=== PATIENT | male | born 1940 | race Caucasian/White ===

== ENCOUNTER 2019-09-14 18:33 | Emergency (ER) | payer MEDICARE, BC, SELFPAY ==
[2019-09-14 18:51] VITALS: BP 136/88; PULSE 67; RESP 16; TEMP 36.1; O2SAT 100; BMI 22.9
--- NOTE | 2019-09-14 21:40 | XR_ITS ---
WS: [id number] Portable AP upright chest, 09/14/2019 Clinical Data: admission Comparison: Portable chest, 12/21/2018. Findings: No nodules, masses or effusions are seen. The heart is normal. The pulmonary vascularity is not increased. No pneumonia or pneumothorax is seen. The aortic arch and descending aorta show calci fication and tortuosity. XR/XR chest 1V portable [id number] Impression: Atherosclerosis.
--- NOTE | 2019-09-14 23:18 | ED_ITS ---
Entered by Amisha Duggan, acting as scribe for Natali Shukla MD Sep 14, 2019 18:33 HPI - General Adult General: Chief complaint: General Medical Stated complaint: lethargic, low o2 Time Seen by Provider: 09/14/19 23:19 History of Present Illness: Associated symptoms: Deny dyspnea, headache(s) or vomiting Review of Systems Resp: Denies: shortness of breath GI: Denies: abdominal pain, vomiting or diarrhea Neuro: Denies: headache PFSH ED PFSH: Statuses (acute, chronic, etc) shown below reflect problem list status as previously entered and may not be historically accurate Social History Smoking and tobacco status: never smoked Physical Exam Const: COMMON NORMALS: no apparent distress and healthy appearing HENMT: COMMON NORMALS: normocephalic and external nose normal HEAD & SCALP: normocephalic NOSE: external nose normal and no nasal discharge (nasal dischage) Eye: COMMON NORMALS: PERRL PUPIL: Yes PERRL Neck/C-Spine: COMMON NORMALS: full ROM and no lymphadenopathy Chest: COMMONS NORMALS: inspection of chest normal Resp: COMMON NORMALS: normal respiratory effort and clear to auscultation bilaterally AUSCULTATION: clear to auscultation bilaterally Cardio: COMMON NORMALS: regular rate and regular rhythm RATE: regular rate RHYTHM: regular rhythm GI: COMMON NORMALS: soft to palpation PALPATION: Yes soft Extremity: COMMON NORMALS: normal to inspection, full ROM and normal capillary refill Psych: COMMON NORMALS: mental status grossly normal and cooperative Skin: COMMON NORMALS: no rashes or lesions noted GENERAL SKIN EXAM: no rashes or lesions noted Course Vital Signs: Vital signs: Vital Signs Temperature 97 F L 09/14/19 18:51 Pulse Rate 67 09/14/19 18:51 Respiratory Rate 16 09/14/19 18:51 Blood Pressure 136/88 09/14/19 18:51 Pulse Oximetry 100 09/14/19 18:51 Coding Level of Care Code ED Medicaid Biller for Nellie [place]
--- NOTE | 2019-09-14 23:26 | ECG_ITS ---
Measurements Intervals [place] Rate: 61 P: 52 IA: 244 QRS: 38 QRSD: 118 T: 68 QT: 409 QTc: 414 SINUS RHYTHM WITH FIRST DEGREE AV BLOCK MODERATE INTRAVENTRICULAR CONDUCTION DELAY [110+ ms QRS DURATION] Compared to ECG 02/08/2018 18:19:01 First degree AV block now present Intraventricular conduction delay now present Electronically Signed On 09-15-2019 13:29:26 COLLABORATING SUPERVISING PHYSICIAN by Sirena Ribeiro M.D. [id number]
--- NOTE | 2019-09-14 23:29 | ED_ITS ---
HPI - General Adult General: Chief complaint: General Medical Stated complaint: lethargic, low o2 Time Seen by Provider: 09/14/19 23:19 History of Present Illness: HPI narrative: states patient has been sleeping more the last few days. Notes his oxygen level on her home O2 sat was 76% but patient was not short of breath. Did get up in the 90s. Patient's called daughter and they checked it it was down 80s went to [facility] urgent care and It was up in the 90s and got down about 89. Patient has been in waiting room for a while and had no episodes of shortness of breath. 's concern is possible pneumonia. MD complaint: low sats Onset (ago): hour(s) Associated symptoms: Deny chest pain, dyspnea, headache(s), nausea, rash or vomiting Review of Systems Narrative: Low O2 sats Const: Denies: fever, chills or body aches Eyes: Denies: change in vision or blurry vision ENMT: Denies: throat pain or nasal congestion Card: Denies: chest pain or shortness of breath on exertion Resp: Reports: non-productive cough (Very minimal); Denies: shortness of breath or productive cough GI: Denies: abdominal pain, nausea or vomiting : Denies: difficulty urinating Musc: Denies: extremity pain Skin/Breast: Denies: rash Neuro: Denies: headache Psych: Denies: anxiety or depression Peter/Lymph: Denies: easy bruising PFSH ED PFSH: Statuses (acute, chronic, etc) shown below reflect problem list status as previously entered and may not be historically accurate Social History Smoking and tobacco status: never smoked Physical Exam Const: COMMON NORMALS: no apparent distress and average body habitus HENMT: COMMON NORMALS: normocephalic HEAD & SCALP: normal to inspection and normocephalic FACE & SINUS: normal facial exam Eye: COMMON NORMALS: conjunctivae normal GENERAL EYE: normal appearance of both eyes CONJUNCTIVA: Yes conjunctivae normal Neck/C-Spine: COMMON NORMALS: no JVD Chest: COMMONS NORMALS: inspection of chest normal Resp: COMMON NORMALS: normal respiratory effort and clear to auscultation bilaterally AUSCULTATION: clear to auscultation bilaterally Cardio: COMMON NORMALS: no JVD, regular rate and regular rhythm RATE: regular rate RHYTHM: regular rhythm GI: COMMON NORMALS: normal to inspection, nondistended, normoactive bowel sounds Extremity: COMMON NORMALS: normal to inspection and full ROM Neuro: OTHER: Patient history of strokes x2 does not really communicate verbally and if he does he has very little to say Course Vital Signs: Vital signs: Vital Signs Temperature 97 F L 09/14/19 18:51 Pulse Rate 67 09/14/19 18:51 Respiratory Rate 16 09/14/19 18:51 Blood Pressure 136/88 09/14/19 18:51 Pulse Oximetry 100 09/14/19 18:51 [facility] - General Adult Lab Data: Labs: Lab Results 09/14/19 09/14/19 Range/Units 00:08 00:08 WBC 6.0 (4.0-10.0) 10^3/ uL RBC 4.37 (4.1-5.3) 10^6/u L Hgb 13.0 (11.7-16.6) g/dL Hct 39.8 L (42.0-52.0) % MCV 91.1 (80-94) fL MCH 29.7 (28.0-34.0) pg MCHC 32.7 (30.0-36.0) g/dL RDW 12.9 (12.1-15.1) % Plt Count 185 (130-400) 10^3/c mm MPV 10.3 (7.4-10.4) fL Neut % (Auto) 56.7 % Lymph % (Auto) 33.3 % Vernon % (Auto) 6.2 % Eos % (Auto) 2.7 % Baso % (Auto) 0.8 % Neut # (Auto) 3.4 (1.8-7.7) 10^3/u L Lymph # (Auto) 2.0 (0.8-4.8) 10^3/u L Vernon # (Auto) 0.4 (0.2-0.9) 10^3/u L Eos # (Auto) 0.2 (0.0-0.8) 10^3/u L Baso # (Auto) 0.1 (0.0-0.1) 10^3/u L Nucleated RBC % (a uto) 0 % Nucleated RBCs # 0.0 /100WBC Sodium 142 (136-145) mmol/L Potassium 4.4 (3.5-5.1) mmol/L Chloride 104 (98-107) mmol/L Carbon Dioxide 28 (22-29) mmol/L Anion Gap 14.4 (5-19) BUN 25 H (8-23) mg/dL Creatinine 1.4 H (0.7-1.2) mg/dL Glucose 113 H (74-106) mg/dL Calcium 10.3 H (8.8-10.2) mg/Dl Total Bilirubin 0.2 (0.15-1.2) mg/dL AST 13 (0-40) U/L ALT 15 (0-41) U/L Alkaline Phosphata se 53 (40-130) IU/L Total Protein 7.3 (6.6-8.7) g/dL Albumin 4.3 (3.5-5.2) g/dL Globulin 3.0 (1.3-4.6) g/dL Imaging Data^: CXR: My impression: No infiltrates EKG Data^: EKG 1: EKG interpretation date: 09/15/19 EKG interpretation time: 23:43 Interpretation: SR with 1st degree av block Discharge Plan Discharge Patient Disposition: Home, Self-Care Clinical Impression: Hypoxia Condition: Stable Discharge Orders: Discharge Order (Routine); Ordered 09/15/19 Ordered By: Abdullahi Jones Referrals: Jeannine Mancera PA [Primary Care Provider] - Discharge Diet: Usual diet Discharge Activity: Increase activity as tolerated Patient Instructions: Hypoxia (ED) Activity Restrictions/Additional Instructions: Follow-up with family provider. Can return here if worsens. Have a overnight O2 sat test done. Coding Level of Care Code ED Health Administration Teacher for Chg Fwd Exam Problem Focused
[2019-09-15 00:18] LABS: Basophils # 0.1 10^3/uL (0.0-0.1); Basophils % 0.8 %; Eosinophils # 0.2 10^3/uL (0.0-0.8); Eosinophils % 2.7 %; Hematocrit 39.8 % (42.0-52.0); Lymphocytes % 33.3 %; Mean Corpuscular HGB Conc 32.7 g/dL (30.0-36.0); Mean Corpuscular Hemoglobin 29.7 pg (28.0-34.0); Mean Corpuscular Volume 91.1 fL (80-94); Mean Platelet Volume 10.3 fL (7.4-10.4); Monocytes # 0.4 10^3/uL (0.2-0.9); Monocytes % 6.2 %; Neutrophils # 3.4 10^3/uL (1.8-7.7); Neutrophils % 56.7 %; Nucleated Red Blood Cells % 0 %; Platelet Count 185 10^3/cmm (130-400); Red Blood Count 4.37 10^6/uL (4.1-5.3); Red Cell Distribution Width 12.9 % (12.1-15.1)
[2019-09-15 00:30] VITALS: BP 143/74; PULSE 82; RESP 18; O2SAT 92
[2019-09-15 00:33] LABS: Alanine Aminotransferase 15 U/L (0-41); Albumin Level 4.3 g/dL (3.5-5.2); Alkaline Phosphatase 53 IU/L (40-130); Anion Gap 14.4 (5-19); Aspartate Amino Transferase 13 U/L (0-40); Blood Urea Nitrogen 25 mg/dL (8-23); Calcium 10.3 mg/Dl (8.8-10.2); Carbon Dioxide 28 mmol/L (22-29); Chloride 104 mmol/L (98-107); Glucose 113 mg/dL (74-106); Potassium 4.4 mmol/L (3.5-5.1); Sodium 142 mmol/L (136-145); Total Bilirubin 0.2 mg/dL (0.15-1.2); Total Protein 7.3 g/dL (6.6-8.7)
[2019-09-15 01:31] VITALS: BP 155/74; PULSE 81; RESP 18; TEMP 36.7; O2SAT 97
== END 2019-09-15 01:33 | disposition home or self-care (01) ==
PROVIDERS: Emergency Provider Nurse Practitioner Family; Family Provider Physician Assistant; PCP Physician Assistant
DX: R09.02 Hypoxemia (principal)
CPT/HCPCS: 36415; 71045; 80053; 85025; 93005; 99281; 99283

== ENCOUNTER 2019-10-10 08:43 | Observation (INO) | payer MEDICARE, BC, SELFPAY ==
[2019-10-10] VITALS (11 sets, daily range): BP systolic 149–180; BP diastolic 70–94; PULSE 63–86; RESP 16–118; TEMP 36.5–37.4; O2SAT 93–98
--- NOTE | 2019-10-10 08:45 | CT_ITS ---
WS: [id number] CT HEAD HISTORY: 79 years old Male with AMS COMPARISON: CT head without contrast 02/14/2018 TECHNIQUE: 2.[address] images of the head With 2-D reformats. DLP: 990.[address] scans at [facility] use at least one of these dose optimization techniques: automat ed exposure control; mA and/or kV adjustment per patient size (includes targeted exams where dose is matched to clinical indication); or iterative reconstruction. FINDINGS: No intracranial hemorrhage, midline shift, or other mass effect. Large left middle cerebral artery te rritory infarct with frontal, temporal, and parietal encephalomalacia unchanged. No new intra-axial a ttenuation abnormality. Remaining moreno-white matter differentiation maintained. Ventricular configura tion and basilar cisterns unremarkable. Cerebral parenchymal volume loss reidentified. Anterior circu lation atherosclerosis. No hyperattenuation to suggest acute thrombus. Left interhemispheric falx 18 mm partially calcified mass, suggestive of a meningioma is unchanged. Globes and orbital soft tissues are unremarkable. Nasopharyngeal soft tissues unremarkable. Clear mas toid air cells and included paranasal sinuses. No fracture or destruction seen. Scalp and remaining e xtra cranial spaces and soft tissues unremarkable. CT/CT head wo con* [id number] IMPRESSION: 1. No intracranial hemorrhage or mass effect. 2. Unchanged large left middle cerebral artery territory infarct involving the left frontal, temporal, parietal lobes. 3. Unchanged left interhemispheric falx meningioma. 4. Anterior circulation atherosclerosis.
--- NOTE | 2019-10-10 08:45 | ECG_ITS ---
Measurements Intervals [place] Rate: 66 P: MA: 0 QRS: 45 QRSD: 121 T: 61 QT: 410 QTc: 431 SINUS RHYTHM MODERATE INTRAVENTRICULAR CONDUCTION DELAY [110+ ms QRS DURATION] Compared to ECG 09/14/2019 23:42:49 There is no difference Electronically Signed On 10-11-2019 0:19:01 FITTINGS TIGHTENER by Ninfa Campos M.D. [id number] f
--- NOTE | 2019-10-10 08:46 | XR_ITS ---
WS: [id number] ONE VIEW CHEST HISTORY: 79 years old Male with AMS AP semiupright chest comparison 09/14/2019 FINDINGS: No pneumothorax, pleural effusion, consolidation/atelectasis. Heart size and pulmonary vascular estrellita ngs are unremarkable. Thoracic aorta atherosclerosis. Spine spondylosis. No subdiaphragmatic free air . XR/XR chest 1V portable [id number] IMPRESSION: No acute cardiopulmonary findings, and no significant change from 09/14/2019
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
[2019-10-10 09:02] LABS: Glucose Point of Care 140 mg/dL (70-110)
[2019-10-10 09:21] LABS: Basophils % 0.7 %; Eosinophils # 0.1 10^3/uL (0.0-0.8); Hematocrit 35.9 % (42.0-52.0); Hemoglobin 11.8 g/dL (11.7-16.6); Lymphocytes # 2.1 10^3/uL (0.8-4.8); Lymphocytes % 35.9 %; Mean Corpuscular HGB Conc 32.9 g/dL (30.0-36.0); Mean Corpuscular Hemoglobin 29.9 pg (28.0-34.0); Mean Corpuscular Volume 90.9 fL (80-94); Mean Platelet Volume 10.5 fL (7.4-10.4); Monocytes # 0.3 10^3/uL (0.2-0.9); Monocytes % 5.6 %; Neutrophils # 3.3 10^3/uL (1.8-7.7); Neutrophils % 55.6 %; Nucleated Red Blood Cells % 0 %; Platelet Count 187 10^3/cmm (130-400); Red Blood Count 3.95 10^6/uL (4.1-5.3); White Blood Count 5.9 10^3/uL (4.0-10.0)
[2019-10-10 09:34] LABS: INR 1.09 (0.8-1.2)
[2019-10-10 09:35] LABS: Partial Thromboplastin Time 32.5 SECONDS (23.9-36.7)
[2019-10-10 09:40] LABS: Lactic Sepsis W/Reflex 1.8 mmol/L (0.5-2.2)
[2019-10-10 09:42] LABS: Troponin(5th) Baseline 14 ng/mL (0-15)
[2019-10-10 09:47] LABS: Alanine Aminotransferase 18 U/L (0-41); Albumin Level 3.9 g/dL (3.5-5.2); Alkaline Phosphatase 48 IU/L (40-130); Anion Gap 14.9 (5-19); Aspartate Amino Transferase 14 U/L (0-40); Blood Urea Nitrogen 19 mg/dL (8-23); Calcium 9.3 mg/dL (8.5-10.5); Carbon Dioxide 27 mmol/L (22-29); Chloride 106 mmol/L (98-107); Globulin 3.2 g/dL (1.3-4.6); Glucose 144 mg/dL (65-115); Potassium 3.9 mmol/L (3.5-5.1); Sodium 144 mmol/L (136-145); Thyroid Stimulating Hormone 1.86 uIU/mL (0.27-4.20); Total Bilirubin 0.3 mg/dL (0.15-1.2); Total Protein 7.1 g/dL (6.6-8.7)
[2019-10-10 11:52] LABS: Troponin 5 2HR 11.17 ng/mL (0-15)
[2019-10-10 11:54] LABS: Troponin 5 2HR Delta -2.83 ABS# (0-10)
[2019-10-10] MEDS: D5-NS 0.45% + KCL 20 mEq 20 MEQ/1,000 ML BAG 125 MEQ IV ×2 (14:22→21:55)
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
--- NOTE | 2019-10-10 14:45 | ECG_ITS ---
Measurements Intervals Curtice Rate: 85 P: 75 MI: 218 QRS: 55 QRSD: 114 T: 42 QT: 371 QTc: 442 SINUS RHYTHM WITH FIRST DEGREE AV BLOCK POSSIBLE INFERIOR MYOCARDIAL INFARCTION [30 ms Q WAVE IN II/aVF], PROBABLY OLD Compared to ECG 09/14/2019 23:42:49 Myocardial infarct finding now present Intraventricular conduction delay no longer present Electronically Signed On 10-11-2019 0:21:57 ENROBING MACHINE OPERATOR by Ninfa Campos M.D. [email or web address]
[2019-10-10 14:47] LABS: Glucose Point of Care 136 mg/dL (70-110)
[2019-10-10 14:53] LABS: Urine Appearance Clear (CLEAR); Urine Color Yellow (Yellow); pH Urine 5 (5-7)
[2019-10-10 14:54] LABS: Bilirubin Urine Neg (NEGATIVE); Blood Urine Neg (Negative); Glucose Urine UA Norm (Normal); Ketones Urine Negative (Negative); Leukocyte Esterase Urine Negative (Negative); Nitrate Urine Negative (Negative); Protein Urine Neg (Negative); Specific Gravity, Urine 1.015 (1.005-1.030); Urobilinogen Urine Norm (Negative)
[2019-10-10 14:55] LABS: Hyaline Casts Urine RARE; Mucus Urine 1+
[2019-10-10 14:57] LABS: Add Urine Culture? No; Bacteria Urine 1+; RBC Urine 0-4 /hpf (0-2); Sperm Urine 1+; Squamous Epithelial Cell Urine 0-4 (0-5)
--- NOTE | 2019-10-10 15:07 | PC.CHAP ---
Pastoral Care Encounter/Spiritual Assessment Type of Contact [] Declined speech clinician visit [] Patient/Family/Request visit [] Outpatient visit [] Follow-up visit [] Physician referral [] Code/Alert [x] Routine visit [] Staff referral [] Actively dying [] Patient sleeping [] Family support [] [] Out of room [] Palliative care [] [] Receiving care in room [] Pre-surgical visit [] Trauma [] Long length of stay [] ICU visit [] Other: Relational/Emotional Strength [] Patient feels connected with others/family/visitors/staff [] Distress [] Loneliness/isolation [] Abandonment Spirituality of Patient [] Person of Sarah [] Attends Anglican of their Sarah [] Believes in Prayer [] Reads Bible or Restoration materials [] There are Spiritual issues to be addressed Inoculator Interventions [] Prayer [] Active listening [] Non-anxious presence [] Spiritual/emotional support [] Crisis/trauma care [] Spiritual counseling [] Bereavement support [] Provided bereavement packet [] Provided Bible/devotional materials [] Provided toy/stuffed animal, coloring book to patient or family member [] Provided Communion [] Anointing/[place] [] Salvation [] Completed spiritual assessment [] Other: Impact on Illness or Injury [] Angry [] Fearful [] Anxious [] Often cries [] Exhaustion [] Unable to work [] Unable to attend taoist [] Unable to walk/stand [] Unable to read [] Unable to drive [] Unable to eat/drink [] Unable to sleep [] Unable to be with family [] Patient intubated [] Other: Summary One visitor Time spent with patient
[2019-10-10] MEDS: heparin 5,000 unit/mL INJ 1 mL 5000 UNIT SUBCUT (15:41)
[2019-10-10 15:46] LABS: Troponin 5 6HR 12.93 ng/L (0-15)
[2019-10-10 15:51] LABS: Troponin 5 6HR Delta -1.07 ng/L (0-12)
[2019-10-10 17:27] LABS: Glucose Point of Care 158 mg/dL (70-110)
[2019-10-10 20:53] LABS: Glucose Point of Care 125 mg/dL (70-110)
[2019-10-11] VITALS (11 sets, daily range): BP systolic 148–193; BP diastolic 78–90; PULSE 61–92; RESP 18; TEMP 36.4–37.4; O2SAT 92–98
[2019-10-11] MEDS: heparin 5,000 unit/mL INJ 1 mL 5000 UNIT SUBCUT ×2 (04:03→15:00)
[2019-10-11] MEDS: D5-NS 0.45% + KCL 20 mEq 20 MEQ/1,000 ML BAG 125 MEQ IV ×2 (05:35→15:00)
[2019-10-11 06:01] LABS: Basophils % 0.6 %; Eosinophils # 0.1 10^3/uL (0.0-0.8); Eosinophils % 0.8 %; Hematocrit 35.3 % (42.0-52.0); Hemoglobin 11.8 g/dL (11.7-16.6); Lymphocytes # 2.2 10^3/uL (0.8-4.8); Lymphocytes % 30.7 %; Mean Corpuscular HGB Conc 33.4 g/dL (30.0-36.0); Mean Corpuscular Hemoglobin 30.8 pg (28.0-34.0); Mean Corpuscular Volume 92.2 fL (80-94); Mean Platelet Volume 10.5 fL (7.4-10.4); Monocytes # 0.6 10^3/uL (0.2-0.9); Monocytes % 7.8 %; Neutrophils # 4.3 10^3/uL (1.8-7.7); Nucleated Red Blood Cells % 0 %; Platelet Count 182 10^3/cmm (130-400); Red Blood Count 3.83 10^6/uL (4.1-5.3); Red Cell Distribution Width 13.2 % (12.1-15.1); White Blood Count 7.2 10^3/uL (4.0-10.0)
[2019-10-11 06:22] LABS: Glucose Point of Care 128 mg/dL (70-110)
[2019-10-11 06:25] LABS: Anion Gap 12.8 (5-19); Blood Urea Nitrogen 13 mg/dL (8-23); Calcium 9.2 mg/dL (8.5-10.5); Carbon Dioxide 24 mmol/L (22-29); Chloride 108 mmol/L (98-107); Glucose 146 mg/dL (65-115); Osmolality Calculated 291 mOsm/kg (285-295); Potassium 3.8 mmol/L (3.5-5.1); Sodium 141 mmol/L (136-145)
[2019-10-11 06:28] LABS: Estmated Average Glucose 134; Hemoglobin A1C 6.3 % (4.0-6.0)
[2019-10-11 10:56] LABS: Glucose Point of Care 143 mg/dL (70-110)
--- NOTE | 2019-10-11 12:36 | PC.OT ---
OT orders received to evaluate and treat. Family present and states pt. has improved since yesterday. Pt. would not awaken or respond to any commands. Evaluation to be completed at a later time when pt. is more responsive.
--- NOTE | 2019-10-11 14:57 | PC.CHAP ---
Pastoral Care Encounter/Spiritual Assessment Type of Contact [] Declined regulatory technician visit [] Patient/Family/Request visit [] Outpatient visit [] Follow-up visit [] Physician referral [] Code/Alert [x] Routine visit [] Staff referral [] Actively dying [] Patient sleeping [] Family support [] [] Out of room [] Palliative care [] [] Receiving care in room [] Pre-surgical visit [] Trauma [] Long length of stay [] ICU visit [] Other: Relational/Emotional Strength [] Patient feels connected with others/family/visitors/staff [] Distress [] Loneliness/isolation [] Abandonment Spirituality of Patient [x] Person of Sarah [] Attends Amish of their Sarah [] Believes in Prayer [] Reads Bible or Moravian materials [] There are Spiritual issues to be addressed Electrician Manager Interventions [x] Prayer [] Active listening [] Non-anxious presence [] Spiritual/emotional support [] Crisis/trauma care [] Spiritual counseling [] Bereavement support [] Provided bereavement packet [] Provided Bible/devotional materials [] Provided toy/stuffed animal, coloring book to patient or family member [] Provided Communion [] Anointing/[employer] [] Salvation [x] Completed spiritual assessment [] Other: Impact on Illness or Injury [] Angry [] Fearful [] Anxious [] Often cries [] Exhaustion [] Unable to work [x] Unable to attend sikhism [] Unable to walk/stand [] Unable to read [] Unable to drive [] Unable to eat/drink [] Unable to sleep [] Unable to be with family [] Patient intubated [] Other: Summary patient unable to mspeak m Time spent with patient 10 min 2visitors
--- NOTE | 2019-10-11 16:43 | P.PN_ITS ---
Subjective Subjective: Interval history: Patient seen and examined, family at bedside, remains unresponsive though states that he coughed several times throughout the night. Unable to open his eyes, follow any of my commands, even with sternal rub. Seems to be drooling as well and has required some suctioning. Had an extensive goals of care discussion with patient's family including his sisters on the phone. Family has decided to go with home with hospice. Case management will arrange for this. We discussed CODE STATUS and family is agreeable to DNR/DNI status. Patient remains n.p.o. Medications: Reviewed: Yes Medication Review Details: Current Medications Generic Name Dose Route Start Last Admin Trade Name Freq PRN Reason Stop Dose Admin Heparin Sodium (Be ef Lung) 5,000 unit 10/10/19 15:00 10/11/19 15:00 Heparin SUBCUT 5,000 unit Q12H WALESKA Administration Potassium Chloride /Dextrose/Sod Cl 20 meq in 1,000 m ls @ 125 mls/hr 10/10/19 12:05 10/11/19 15:00 D5-Ns 0.45% + Casey l 20 Meq IV 125 mls/hr .Q8H WALESKA Administration Levetiracetam 500 mg/ Sodium 105 mls @ 420 mls /hr 10/10/19 17:00 10/11/19 06:40 Chloride IV Infused Q12H WALESKA Infusion Insulin Aspart 0 unit 10/10/19 18:00 10/11/19 12:14 Novolog SUBCUT 2 unit WM&BEDTIME WALESKA Administration Protocol Vitals/I&O/Wt Last Vital Signs Temp 97.6 F 10/11/19 11:15 Pulse 70 10/11/19 13:09 Resp 18 10/11/19 11:15 BP 168/80 10/11/19 11:15 Pulse Ox 98 10/11/19 13:09 10/11/19 10/11/19 10/11/19 06:59 14:59 22:59 Intake Total 1063.333 / 2112.083 1000 / 1000 Balance 1063.333 / 2112.083 1000 / 1000 Weight last 48 hrs Weight 96.729 kg Physical Exam Const: COMMON NORMALS: no apparent distress GENERAL APPEARANCE: frail appearing and appears older than stated age; not in distress OTHER: -currently unresponsive HENMT: COMMON NORMALS: normocephalic and head/scalp atraumatic HEAD & SCALP: normocephalic and atraumatic Neck/C-Spine: GENERAL: Yes normal visual inspection and Yes trachea midline Resp: COMMON NORMALS: normal respiratory effort, no retractions, no use of accessory muscles and clear to auscultation bilaterally EFFORT & INSPECTION: Yes symmetric chest movement and No tachypneic AUSCULTATION: clear to auscultation bilaterally Cardio: COMMON NORMALS: regular rate, regular rhythm, S1 normal heart sound, S2 normal heart sound and no murmurs RATE: regular rate RHYTHM: regular rhythm HEART SOUNDS: S1 normal and S2 normal GI: COMMON NORMALS: normal to inspection, nondistended, normoactive bowel sounds and soft to palpation PALPATION: Yes soft Extremity: COMMON NORMALS: normal to inspection and no clubbing, cyanosis or edema; negative for no pedal edema Neuro: OTHER: -unable to assess as currently unresponsive to verbal and tactile or even painful stimulation -intermittently moving his RUE reflexively Psych: OTHER: -unable to assess as unresponsive Skin: COMMON NORMALS: no rashes or lesions noted, no jaundice, no petechiae and no mottling GENERAL SKIN EXAM: no rashes or lesions noted Data : 10/11/19 05:35 10/11/19 05:35 Micro: Microbiology 10/10/19 09:10 Blood Culture - Preliminary Blood NEGATIVE TO DATE 10/10/19 09:04 Blood Culture - Preliminary Blood NEGATIVE TO DATE A&P Assessment and plan (1) Decreased responsiveness: -since earlier this AM upon awakening from hx available -possible CVA, has already had a rather large L MCA CVA in 01/2018 with noted residual R-sided weakness. Also had evidence of sudural and subarachnoid hemorrhage at that time -continues to be unresponsive; neurochecks -telemetry monitoring -CT head noted, no acute changes, prior large L MCA infarct -fall, aspiration, seizure precautions -permissive HTN complete -IVF hydration, NPO until more consistently awake -PT/OT/ST evaluations if improved; unable to complete due to patient's inability to respond or participate -accuchecks -no evidence of infection -continue to monitor vital signs -supplemental oxygen as needed Status: Acute Code(s): R41.89 - Other symptoms and signs involving cognitive functions and awareness (2) Stroke: Status: Acute Qualifiers: CVA mechanism: thrombosis Precerebral and cerebral artery: middle cerebral artery Laterality of affected vessel: left Qualified Code(s): I63.312 - Cerebral infarction due to thrombosis of left middle cerebral artery Code(s): I63.9 - Cerebral infarction, unspecified Additional A&P Information -HTN -NIDDM type II -Seizure disorder; IV Keppra -hx of subarachoid and subdural hemorrhagic stroke -ROLAND -no oral meds at this time -DVT ppx with heparin -Accuchecks, ISS, hypoglycemia precautions -Dispo: home with hospice; family has chosen [facility] -Code status: DNR/DNI; discussed with and son at bedside Attestations Medical Necessity Statement*: Patient requires hospitalization for continued management of CVA pending appropriate disposition. Time Spent in Patient Care: Greater than 35 minutes (>than 50% of time spent in counselling and/or direct pt care on unit) . >50% of time at bedside spent on goals of care discussion with family Coding Level of Care Code Acute Circuit Design Engineer for Chg Fwd Diagnoses Decreased responsiveness R41.89 Stroke I63.312 CVA mechanism: thrombosis Precerebral and cerebral artery: middle cerebral artery Laterality of affected vessel: left
[2019-10-11 16:44] LABS: Glucose Point of Care 120 mg/dL (70-110)
[2019-10-11 21:45] LABS: Glucose Point of Care 100 mg/dL (70-110)
[2019-10-12] VITALS (9 sets, daily range): BP systolic 136–188; BP diastolic 79–96; PULSE 75–83; RESP 16–20; TEMP 36.8–37.5; O2SAT 92–96; BMI 27.4
[2019-10-12] MEDS: heparin 5,000 unit/mL INJ 1 mL 5000 UNIT SUBCUT (04:05)
[2019-10-12] MEDS: D5-NS 0.45% + KCL 20 mEq 20 MEQ/1,000 ML BAG 125 MEQ IV (04:32)
[2019-10-12 06:35] LABS: Glucose Point of Care 139 mg/dL (70-110)
--- NOTE | 2019-10-12 10:11 | P.DS_ITS ---
Discharge Providers Date of Admission: 10/10/19 11:02 Date of Discharge: October 12, 2019 Attending Provider at Admission: Marilee Moon MD Attending Provider at Discharge: Marilee Moon MD Primary Care Provider: Jeannine Mancera Diagnoses at Discharge Discharge Diagnosis (1) Decreased responsiveness: Status: Acute Problem details: -since earlier this AM upon awakening from hx available -possible CVA, has already had a rather large L MCA CVA in 01/2018 with noted residual R-sided weakness. Also had evidence of sudural and subarachnoid he morrhage at that time -continues to be unresponsive; neurochecks -telemetry monitoring -CT head noted, no acute changes, prior large L MCA infarct -fall, aspiration, seizure precautions -permissive HTN complete -IVF hydration, NPO until more consistently awake -PT/OT/ST evaluations if improved; unable to complete due to patient's inability to respond or participate -accuchecks -no evidence of infection -continue to monitor vital signs -supplemental oxygen as needed (2) Stroke: Status: Acute Qualifiers: CVA mechanism: thrombosis Laterality of affected vessel: left Precerebral and cerebral artery: middle cerebral artery Qualified Code(s): I63.312 - Cerebral infarction due to thrombosis of left middle cerebral artery Other Information Additional DC diagnoses/information: -HTN -NIDDM type II -Seizure disorder; IV Keppra -hx of subarachoid and subdural hemorrhagic stroke -ROLAND Reason for Visit Reason for Visit: Reason For Visit: STROKE LIKE SYMPTOMS Hospital Course Hospital Course: Patient presented with decreased responsiveness likely secondary to CVA. CT scan did not show any acute findings though did have evidence of previous large left MCA stroke. Unfortunately patient's mental status has not improved and he has remained unresponsive. His vital signs have been stable but he has not responded in any meaningful way or had any purposeful movements. He has remained n.p.o. throughout his hospital stay due to inability to assess his swallowing as he has not been awake enough for us to assess this safely. As well because of his decreased responsiveness we were unable to fully assess his potential for therapy. Prognosis is quite poor. I had an extensive goals of care discussion with patient's family at bedside and they have decided to take the patient home with hospice which is currently being arranged through case management. In the meantime patient has been kept comfortable per his family's wishes. Discharge Summary: -Patient to follow-up with hospice provider Physical Exam Const: COMMON NORMALS: no apparent distress GENERAL APPEARANCE: frail appearing and appears older than stated age; not in distress OTHER: -currently unresponsive HENMT: COMMON NORMALS: normocephalic and head/scalp atraumatic HEAD & SCALP: normocephalic and atraumatic Eye: COMMON NORMALS: PERRL, EOMs intact bilaterally and conjunctivae normal CONJUNCTIVA: Yes conjunctivae normal PUPIL: Yes PERRL Neck/C-Spine: COMMON NORMALS: full ROM GENERAL: Yes normal visual inspection and Yes trachea midline Resp: COMMON NORMALS: normal respiratory effort, no retractions, no use of accessory muscles and clear to auscultation bilaterally EFFORT & INSPECTION: Yes symmetric chest movement and No tachypneic AUSCULTATION: clear to auscultation bilaterally Cardio: COMMON NORMALS: regular rate, regular rhythm, S1 normal heart sound, S2 normal heart sound and no murmurs RATE: regular rate RHYTHM: regular rhythm HEART SOUNDS: S1 normal and S2 normal GI: COMMON NORMALS: normal to inspection, nondistended, normoactive bowel sounds and soft to palpation PALPATION: Yes soft Extremity: COMMON NORMALS: normal to inspection and no clubbing, cyanosis or edema; negative for no pedal edema Neuro: OTHER: -unable to assess as currently unresponsive to verbal and tactile or even painful stimulation -intermittently moving his RUE reflexively Psych: OTHER: -unable to assess as unresponsive Skin: COMMON NORMALS: no rashes or lesions noted, no jaundice, no petechiae and no mottling GENERAL SKIN EXAM: no rashes or lesions noted Discharge Data Data Completed and Pending: Completed Studies During Hospitalization Category Date Time Status CT head wo con* 7 0450 Urgent Cat Scan 10/10/19 08:45 Completed XR chest 1V lesa ble [id number] Stat Exams 10/10/19 08:46 Completed Pending at discharge Category Date Time Status Blood Culture Sta t Lab 10/10/19 09:04 Results Labs from last 24 hours 10/12/19 10/11/19 10/11/19 06:16 21:38 16:35 POC Glucose 139 100 120 10/11/19 10:52 POC Glucose 143 Vitals: Last Vital Signs Temp 99.1 F 10/12/19 07:21 Pulse 83 10/12/19 07:21 Resp 16 10/12/19 07:21 BP 136/79 10/12/19 07:21 Pulse Ox 92 10/12/19 07:21 Discharge Plan Discharge Patient Disposition: Hospice - Home Condition: Stable Prescriptions: New Isopto Atropine 1 % Drops 4 drp sublingual Q2H PRN (Reason: Secretions) Qty: 15 RF: 0 morphine 10 mg/5 mL solution 2.5 mg PO Q2H PRN (Reason: pain or air hunger) Qty: 15 RF: 0 lorazepam 2 mg/mL concentrate 1 mg BUCCAL Q4H PRN (Reason: anxiety) Qty: 30 RF: 0 Discontinued latanoprost 0.005 % drops 2 drp ophthalmic (eye) DAILY RF: 0 levetiracetam 500 mg tablet 500 mg PO BID RF: 0 famotidine 20 mg tablet 20 mg PO DAILY RF: 0 tamsulosin 0.4 mg capsule 0.4 mg PO BID RF: 0 lisinopril 10 mg tablet 10 mg PO BID RF: 0 metoprolol tartrate 50 mg tablet 25 - 50 mg PO DAILY RF: 0 venlafaxine 50 mg tablet 50 mg PO BID RF: 0 risperidone 1 mg tablet 1 mg PO BEDTIME RF: 0 Discharge Orders: Discharge Order (Routine); Ordered 10/12/19 Ordered By: Marilee Moon Referrals: Jeannine Mancera PA [Primary Care Provider] - 4-7 days (You have an appointment on at 1030am. ) Discharge Diet: As Directed Discharge Activity: Bedrest Patient Instructions: Lorazepam (By mouth), Morphine, Rapid Release (By mouth), Atropine (By mouth), Ischemic Stroke (DC) Discharge Attestations Time Spent in Discharge Care*: greater than 30 min Specific Discharge Activities: Specific discharge activities: educating and/or supporting family/caregiver, discussing with caser/social workers/dc planners, documenting/other paperwork and evaluating patient/reviewing data Status at Discharge: Cognitive status at discharge: severely impaired cognition , Behavioral status at discharge: dependent in ADL's , Functional status at discharge: bed bound Overall status at discharge: patient has a new baseline Quality Metrics Clinical Quality Measures During this hospital stay, did patient experience: None Coding Level of Care Code Acute Scallop Shucker for Chg Fwd Exam Problem Focused Diagnoses Decreased responsiveness R41.89 Stroke I63.312 CVA mechanism: thrombosis Laterality of affected vessel: left Precerebral and cerebral artery: middle cerebral artery
[2019-10-12 11:32] LABS: Glucose Point of Care 145 mg/dL (70-110)
--- NOTE | 2019-10-12 15:18 | PC.NURSE ---
PT BEING TRANSPORTED BY [facility], FAMILY STATED THEY WOULD COVER THE $125 TRANSPORT FEE. [facility] DID NOT FAX OVER A SHEET FOR THEM TO SIGN, BUT A VERBAL WAS TAKEN BY THIS NURSE WITH [facility] CONFIRMING PT FAMILY AGREEING TO THE $125 FEE.
--- NOTE | 2019-10-16 09:22 | PC.SOCIAL ---
Micro report called with gram negative possible contaminant. Reviewed with Dr Moon and she has agreed is a contaminant and nothing further is required.
== END 2019-10-12 15:20 | disposition hospice, home (50) ==
LOC: ER 09:03 → MEDSURG 11:03
PROVIDERS: Nurse Practitioner Family; Admitting Provider Family Medicine; Emergency Provider Family Medicine; Family Provider Physician Assistant; PCP Physician Assistant; Visit Provider Family Medicine
DX: R41.89 Other symptoms and signs involving cognitive functions and awareness (principal); I63.312 Cerebral infarction due to thrombosis of left middle cerebral artery; I10 Essential (primary) hypertension; E11.9 Type 2 diabetes mellitus without complications; Z82.49 Family history of ischemic heart disease and other diseases of the circulatory system; G47.33 Obstructive sleep apnea (adult) (pediatric); G40.909 Epilepsy, unspecified, not intractable, without status epilepticus
CPT/HCPCS: 12345; 36415; 36416; 51702; 70450; 71045; 80048; 80053; 81001; 82962; 83036; 83605; 84443; 84484; 85025; 85610; 85730; 87040; 87205; 93005; 96360; 96361; 96365; 96372; 97110; 97163; 97530; 99283; 99291; G0378; J1644; J1815; J1953